=== PATIENT | female | born 1935 | race Caucasian/White ===

== ENCOUNTER → 2018-07-26 | Outpatient (CLI) | payer OTHER ==
[~2018-07-26] MED LIST: ARICEPT 5 MG TAB5 MG PO; CALCIUM 500 +1 EAC6 PO; CELEBREX 200 M200 MG PO; CITRUCEL500 MG PO; CO Q-10100 MG PO; CRESTOR40 MG PO; CYMBALTA30 MG PO; KLOR-CON 1010 MEQ PO; LISINOPRIL10 MG PO; LYRICA 50 MG50 MG PO; MAGOX 400400 MG PO; MEDROLDOSEPACK PO; MYRBETRIQ50 MG PO; NAMENDA 10 MG T10 MG PO; NIACIN 500 MG500 M1 PO; NORCO 5-325 TA1 EACH PO; PEPCID20 MG PO; REQUIP 0.25 M0.25 MG PO; TRAMADOL 50 MG50 MG PO; VOLTAREN GEL 1100 G2 TOP; ZETIA10 MG PO
== END ==
LOC: SEN 14:07 → RAD 14:07
DX: Z09 Encounter for follow-up examination after completed treatment for conditions other than malignant neoplasm (principal); M54.5 Low back pain; G89.29 Other chronic pain; R00.2 Palpitations; M54.6 Pain in thoracic spine; R07.9 Chest pain, unspecified; G31.84 Mild cognitive impairment of uncertain or unknown etiology; I10 Essential (primary) hypertension; E78.5 Hyperlipidemia, unspecified; K21.9 Gastro-esophageal reflux disease without esophagitis; Z76.89 Persons encountering health services in other specified circumstances

== ENCOUNTER → 2018-07-29 | Outpatient (CLI) | payer OTHER | LOC: RAD 13:56 | DX: M47.814 Spondylosis without myelopathy or radiculopathy, thoracic region (principal); M41.85 Other forms of scoliosis, thoracolumbar region; M25.78 Osteophyte, vertebrae; I70.0 Atherosclerosis of aorta; R07.89 Other chest pain; R00.2 Palpitations ==

== ENCOUNTER → 2018-08-16 | Outpatient (CLI) | payer OTHER | LOC: SEN 08:49 | DX: G47.33 Obstructive sleep apnea (adult) (pediatric) (principal); R40.0 Somnolence; E78.5 Hyperlipidemia, unspecified; I10 Essential (primary) hypertension; K21.9 Gastro-esophageal reflux disease without esophagitis; G25.81 Restless legs syndrome; Z99.89 Dependence on other enabling machines and devices; Z79.899 Other long term (current) drug therapy; Z82.49 Family history of ischemic heart disease and other diseases of the circulatory system; Z81.8 Family history of other mental and behavioral disorders ==

== ENCOUNTER → 2018-08-24 | Outpatient (CLI) | payer OTHER ==
[~2018-08-24] VITALS: Ht 152.4 cm; Wt 54.2 kg
[~2018-08-24] MED LIST changes: -CELEBREX 200 M200 MG PO
[2018-08-24 13:19] VITALS: BP 160/66
--- NOTE | 2018-08-24 13:38 | NUR ---
Pain Clinic Assessment: 1. History of Osteoarthritis: History of Rheumatoid Arthritis: 2. Height: 4 ft. 12 in. 152.4 cm. Weight: 119.6 lb. oz. 54.250 kg. Patient's BMI: 23.4 3. Vital Signs: BP: 160/66 Pulse: 50 Resp: 20 Temp: 02 Sat: 97 ECG Mon: 4. Pain Intensity: 8 5. Fall Risk: Dizziness: N Needs help standing or walking: Y Fallen in the last 3 months: N Fall risk comments: 6. Patient on Blood Thinner: None 7. History of Hypertension: Y 8. Opioid Therapy greater than 6 weeks: Y Opiate Contract Signed: 9. Risk Assessment Tool Provided: 10. Functional Assessment Tool: 11. Recreational Drug Use: Never Drug Type: Tobacco Use: Never Smoker Tobacco Type: Amount or Packs/day: How Many Years: Alcohol Use: No Frequency: Quant:
== END ==
LOC: RAD 07:14 → PAIN 07:14
DX: M25.561 Pain in right knee (principal); I10 Essential (primary) hypertension; Z96.651 Presence of right artificial knee joint; Z79.891 Long term (current) use of opiate analgesic

== ENCOUNTER → 2018-09-07 | Outpatient (CLI) | payer OTHER ==
[~2018-09-07] VITALS: Ht 152.4 cm; Wt 52.8 kg
[~2018-09-07] MED LIST changes: +CELEBREX 200 M200 MG PO
[2018-09-07 15:05] VITALS: BP 167/71
--- NOTE | 2018-09-07 15:09 | NUR ---
Pain Clinic Assessment: 1. History of Osteoarthritis: History of Rheumatoid Arthritis: 2. Height: 4 ft. 12 in. 152.4 cm. Weight: 116.4 lb. oz. 52.799 kg. Patient's BMI: 22.7 3. Vital Signs: BP: 167/71 Pulse: 86 Resp: 16 Temp: 02 Sat: 99 ECG Mon: 4. Pain Intensity: 10 5. Fall Risk: Dizziness: N Needs help standing or walking: N Fallen in the last 3 months: N Fall risk comments: 6. Patient on Blood Thinner: None 7. History of Hypertension: Y 8. Opioid Therapy greater than 6 weeks: Y Opiate Contract Signed: 9. Risk Assessment Tool Provided: LOW 10. Functional Assessment Tool: 11. Recreational Drug Use: Never Drug Type: Tobacco Use: Never Smoker Tobacco Type: Amount or Packs/day: How Many Years: Alcohol Use: No Frequency: Quant:
== END ==
LOC: PAIN 09-02 06:55
DX: M25.561 Pain in right knee (principal); I10 Essential (primary) hypertension; F32.9 Major depressive disorder, single episode, unspecified; Z79.891 Long term (current) use of opiate analgesic

== ENCOUNTER → 2018-09-09 | Outpatient (CLI) | payer OTHER | LOC: SEN 09:24 | DX: Z76.0 Encounter for issue of repeat prescription (principal); R15.9 Full incontinence of feces; I10 Essential (primary) hypertension; E78.5 Hyperlipidemia, unspecified; K21.9 Gastro-esophageal reflux disease without esophagitis ==

== ENCOUNTER → 2018-10-25 | Outpatient (CLI) | payer OTHER | LOC: ULTRA 09:54 | DX: N85.8 Other specified noninflammatory disorders of uterus (principal); N93.8 Other specified abnormal uterine and vaginal bleeding ==

== ENCOUNTER → 2018-10-26 | Outpatient (CLI) | payer OTHER | LOC: RAD 11:18 | DX: R10.84 Generalized abdominal pain (principal); K59.00 Constipation, unspecified; Z90.49 Acquired absence of other specified parts of digestive tract ==

== ENCOUNTER → 2018-12-21 | Outpatient (CLI) | payer OTHER ==
[~2018-12-21] VITALS: Ht 152.4 cm; Wt 52.3 kg
[~2018-12-21] MED LIST changes: +HYDROCODON-ACE1 EAC5 PO
--- NOTE | ~2018-12-21 | HPC ---
[facility] [address] [place] [address] PAIN MANAGEMENT CONSULTATION Name: TONY ABREU Room #: REG [facility] Ian#: [id number] Admission: 12/21/18 Attend Phys: Fran Mcintyre MD Discharge: Date of : 37 Report #: [id number] THIS REPORT FOR: //name// CC: Vee Wyatt DATE OF SERVICE: 12/21/2018 PRIMARY CARE PHYSICIAN: Vee Perez NP CHIEF COMPLAINT: "The back brace is helping." HISTORY: The patient is an 83-year-old female who has been followed in the pain clinic. As you recall, she has a history of chronic knee pain. She feels that the use of diclofenac on the knee area has been beneficial. She also has received the back brace. She feels that it is beneficial. She is making some adjustments to wearing it. Overall, things are going reasonably well. She finds that her medications continue to be helpful. She has returned today for renewal of her medications. She feels that the tramadol, [place], Celebrex and diclofenac are beneficial and would like to have them renewed at this point. She has not fallen since we saw her last. ALLERGIES: No known drug allergies. CURRENT MEDICATIONS: Myrbetriq 50 mg, Namenda 10 mg, niacin 500 mg, CoQ10 100 mg, potassium 10 mEq, magnesium 100 mg, Citrucel 500 mg b.i.d., calcium 500 mg, vitamin D 200 mg, Requip 0.25 mg t.i.d., Lyrica 100 mg t.i.d., famotidine 20 mg b.i.d., Ultram 5 mg b.i.d. to t.i.d., hydrocodone 5/325 one p.o. b.i.d. to t.i.d., Voltaren gel topical 4 times daily to the left knee area, Aricept 5 mg, lisinopril 10 mg, Zetia 10 mg, Crestor 40 mg, Cymbalta 30 mg. PAIN CLINIC ASSESSMENT/PQRS: 1. The patient has a history of osteoarthritis. She has had bilateral artificial knees. She has osteoarthritic changes in the low back area. She is not being treated for rheumatoid arthritis. 2. Height 5 feet 0 inches, weight 115 pounds, BMI is 22.5. 3. VITAL SIGNS: Blood pressure 163/70, pulse 69, respiratory rate 18, room air saturation 99%. 4. Pain intensity 07/24. 5. Fall history: The patient has not fallen in the last 3 months. 6. Blood thinner. The patient is not on a blood thinning medication. 7. Hypertension. The patient is being treated for hypertension. 8. Opioids greater than 6 weeks. The [facility]. 9. Risk assessment tool, low for opioid use. [address] [address] PAIN MANAGEMENT CONSULTATION Name: TONY ABREU Sherly Room #: REG OSM[facility] Sosa#: [id number] Admission: 12/21/18 Attend Phys: Frna Mcintyre MD Discharge: Date of : 37 Report #: [id number] 10. Functional assessment tool . 11. Recreational drug use. The patient denies. 12. Tobacco: The patient has never smoked. 13. Alcohol: The patient denies use of alcoholic beverages. PHYSICAL EXAMINATION: GENERAL: The patient is a well-developed white female, appears her stated age. Her affect is appropriate. The patient is alert and oriented x 3. HEENT: Normocephalic, atraumatic. Extraocular eye muscles intact. The patient is wearing glasses. NECK: Without adenopathy or JVD. HEART: Regular rate. ABDOMEN: Nontender. Bowel sounds difficult to appreciate. The patient has a brace in place. The patient has severe kyphosis and scoliosis in the upper back, has a forward leaning posture. Walks with a rolling walker. Notes discomfort in her right knee. IMPRESSION: 1. Chronic left knee pain and right knee pain. 2. Hypertension. 3. Heart disease. 4. Back surgery with spacers in the vertebral area. 5. Allergic rhinitis. 6. Chronic back pain. 7. Gastroesophageal reflux disease. 8. Hyperlipidemia. 9. Hypertension. 10. Minimal cognitive impairment. 11. Neuropathy and restless leg syndrome. RECOMMENDATIONS: We discussed treatment options with the patient. At this juncture, she feels that the brace that she has on is helpful. It helps her to sit in a bit more ergonomic way. She feels that it is helpful, but is getting used to it. She feels that the hydrocodone medication is helpful, 5 mg 1 p.o. t.i.d., is not as helpful as she would like. She has had higher dosages of this medication. She would like to try 10 mg tablets. We will have the patient try 10 mg hydrocodone 1 p.o. t.i.d. as needed. She will also continue with tramadol as needed 1 p.o. t.i.d. A script for Celebrex has been rewritten. She will monitor her GI tract. Should she note some GI upset stop taking this medication. She will continue with the Voltaren gel to the affected knee. [facility] [address] [facility] [place] [address] PAIN MANAGEMENT CONSULTATION Name: TONY ABREU Room #: REG OSMAN [place].#: [id number] Admission: 12/21/18 Attend Phys: Fran Mcintyre MD Discharge: Date of : 37 Report #: [id number] We would like to thank you for letting us participate in her care. We hope she continues to improve. By: [id number] Fran Mcintyre MD /PMT
[2018-12-21 11:22] VITALS: BP 163/70
--- NOTE | 2018-12-21 11:27 | NUR ---
Pain Clinic Assessment: 1. History of Osteoarthritis: History of Rheumatoid Arthritis: 2. Height: 4 ft. 12 in. 152.4 cm. Weight: 115.4 lb. oz. 52.345 kg. Patient's BMI: 22.5 3. Vital Signs: BP: 163/70 Pulse: 69 Resp: 18 Temp: 02 Sat: 99 ECG Mon: 4. Pain Intensity: 3 5. Fall Risk: Dizziness: N Needs help standing or walking: Y Fallen in the last 3 months: N Fall risk comments: 6. Patient on Blood Thinner: None 7. History of Hypertension: Y 8. Opioid Therapy greater than 6 weeks: Y Opiate Contract Signed: 9. Risk Assessment Tool Provided: LOW 10. Functional Assessment Tool: 11. Recreational Drug Use: Never Drug Type: Tobacco Use: Never Smoker Tobacco Type: Amount or Packs/day: How Many Years: Alcohol Use: No Frequency: Quant:
== END ==
LOC: PAIN 07:00
DX: M25.562 Pain in left knee (principal); M25.561 Pain in right knee; I10 Essential (primary) hypertension; M54.9 Dorsalgia, unspecified; K21.9 Gastro-esophageal reflux disease without esophagitis; E78.5 Hyperlipidemia, unspecified; I51.9 Heart disease, unspecified; J30.9 Allergic rhinitis, unspecified; G31.84 Mild cognitive impairment of uncertain or unknown etiology; G62.9 Polyneuropathy, unspecified; Z79.899 Other long term (current) drug therapy

== ENCOUNTER → 2018-12-27 | Outpatient (CLI) | payer OTHER | LOC: NUC 09:44 | DX: M19.012 Primary osteoarthritis, left shoulder (principal); M19.011 Primary osteoarthritis, right shoulder; M19.032 Primary osteoarthritis, left wrist; M19.031 Primary osteoarthritis, right wrist; M41.85 Other forms of scoliosis, thoracolumbar region; M19.072 Primary osteoarthritis, left ankle and foot; M19.071 Primary osteoarthritis, right ankle and foot ==

== ENCOUNTER → 2019-01-25 | Outpatient (CLI) | payer OTHER ==
[~2019-01-25] VITALS: Ht 152.4 cm; Wt 52.2 kg
[~2019-01-25] MED LIST changes: +PRESERVISION A1 EAC2 PO
--- NOTE | ~2019-01-25 | HPC ---
[facility] [place] [place] [address] PAIN MANAGEMENT CONSULTATION Name: TNOY ABREU Room #: REG [facility].#: [id number] Admission: 01/25/19 ������������������ Attend Phys: Fran Mcintyre MD Discharge: ������������������ Date of : 37 Report #: [id number] THIS REPORT FOR: //name// CC: Fran Wyatt DATE OF SERVICE: 01/25/2019 CHIEF COMPLAINT: "Right knee pain. The back brace helps me sit up more straight." HISTORY: The patient is an 83-year-old female who has been seen in the pain clinic because of chronic pain involving her back. As you may recall, she has scoliosis. She was fitted for a new back brace. She feels that this is helpful. She is constantly moving because the brace encouraging her to sit in a more upright position. She has had no complication from the procedure. She has returned today for renewal of her medications. She feels the hydrocodone medication is helpful. She is taking Celebrex and is having no GI complaints. Finds that the Voltaren gel applied to her affected area is beneficial. She feels that tramadol can be helpful as well. She is able to think clearly. The medications are not clouding her sensorium. She would like to have a renewal of these medications. ALLERGIES: No known drug allergies. CURRENT MEDICATIONS: Myrbetriq 50 mg, Namenda 10 mg, niacin 500 mg, CoQ10 100 mg, potassium 10 mEq, magnesium 100 mg, Citrucel 500 mg b.i.d., calcium 500 mg, vitamin D 200 mg, Requip 0.25 mg t.i.d., Lyrica 100 mg t.i.d., famotidine 20 mg b.i.d., Ultram 5 mg b.i.d. to t.i.d., hydrocodone 5/325 one p.o. b.i.d. to t.i.d., Voltaren gel topical 4 times to the left knee area, Aricept 5 mg, lisinopril 10 mg, Zetia 10 mg, Crestor 40 mg and Cymbalta 30 mg. PAIN CLINIC ASSESSMENT AND PQRS: 1. The patient has history of osteoarthritis. She has some problems with her knees and had bilateral knee replacements. She suffers from osteoarthritic changes in her back as well. Has significant amounts of scoliosis. She is not being treated for rheumatoid arthritis. 2. Height 4 feet 11 inches, weight 115 pounds, BMI is 22.5. 3. Vital Signs: Blood pressure 171/76, pulse 75, respiratory rate 16, room air saturation 97%. 4. Pain intensity 4/10 in the knee and 5-6/10 for the back. 5. Fall risk. The patient has not fallen in the last 3 months. 6. Blood thinner. The patient is not on a blood thinning medication. 7. Hypertension. The patient is being treated for hypertension. 8. Opioids greater than 6 weeks. The [facility] [address] PAIN MANAGEMENT CONSULTATION Name: ALBANIA ABREUFIORELLA Dubois Room #: REG CLI EricEric#: [id number] Admission: 01/25/19 ������������������ Attend Phys: Fran Mcintyre MD Discharge: ������������������ Date of : 37 Report #: [id number] 9. Risk assessment tool, low for opioid use. 10. Functional assessment tool . 11. Recreational drugs. The patient denies use of recreational drugs. 12. Tobacco: The patient has never smoked. 13. Alcohol. The patient denies frequent use of alcoholic beverages. PHYSICAL EXAMINATION: GENERAL: The patient is a well-developed, well-nourished white female. Appears her stated age. She is accompanied by her . Her affect is appropriate. Speech is fluent. HEENT: Normocephalic, atraumatic. Extraocular eye muscles intact. The patient is wearing glasses. NECK: Without adenopathy or JVD. HEART: Regular rate. ABDOMEN: Nontender. MUSCULOSKELETAL: The patient's back has significant changes associated with scoliosis. Some kyphosis is noted. The patient walks with a rolling walker. She has a forward leaning posture. She notes discomfort in her left as well as her right knee. IMPRESSION: 1. Chronic left knee pain and right knee pain. 2. Hypertension. 3. Heart disease. 4. Back surgery with spacers in the vertebral space. 5. Allergic rhinitis. 6. Chronic back pain. 7. Gastroesophageal reflux disease. 8. Hyperlipidemia. 9. Hypertension. 10. Minimally cognitive impaired. 11. Neuropathy and restless leg syndrome. RECOMMENDATIONS: We discussed treatment options with the patient. At this juncture, we will continue with her use of medications to help curtail her pain and discomfort. She is aware that opioid medications can be problematic. The patient states that these are not having any problems with diminution of her cognitive ability. She is alert and able to function well. She feels that the medications are helpful. She finds that the brace is helpful and it continues to remind her to sit in a more upright position. She is having no significant problems with the brace. It is a little bit difficult because of constantly needing to readjust sit up straight. She will continue with her medications. She takes the Celebrex on occasion. She continues to monitor her GI tract. She will stop taking this medication should she develop any concerns regarding her GI function. The patient will continue to apply the Voltaren gel to her affected right knee. Hopefully, she will continue to find that these items are [facility] [address] [place] [address] PAIN MANAGEMENT CONSULTATION Name: TONY ABREU Sherly Room #: REG [facility]#: [id number] Admission: 01/25/19 ������������������ Attend Phys: Fran Mcintyre MD Discharge: ������������������ Date of : 37 Report #: [id number] helpful and continue to improve her daily living. We would like to thank you for letting us participate in her care. We hope she continues to improve. ��������������������������������������������� ���������������������������������������� By: ��������������������������������������������� [id number] Fran Mcintyre MD /nt
[2019-01-25 12:59] VITALS: BP 171/76
--- NOTE | 2019-01-25 13:23 | NUR ---
Pain Clinic Assessment: 1. History of Osteoarthritis: FINGERS RIGHT ANKLE RIGHT KNEE History of Rheumatoid Arthritis: NONE 2. Height: 4 ft. 12 in. 152.4 cm. Weight: 115.0 lb. oz. 52.164 kg. Patient's BMI: 22.5 3. Vital Signs: BP: 171/76 Pulse: 75 Resp: 16 Temp: 02 Sat: 97 ECG Mon: 4. Pain Intensity: KNEE-4 TODAY, BACK-5-6 5. Fall Risk: Dizziness: N Needs help standing or walking: Y Fallen in the last 3 months: N Fall risk comments: 6. Patient on Blood Thinner: None 7. History of Hypertension: Y 8. Opioid Therapy greater than 6 weeks: Y Opiate Contract Signed: 9. Risk Assessment Tool Provided: JULI 10. Functional Assessment Tool: 11. Recreational Drug Use: Never Drug Type: Tobacco Use: Never Smoker Tobacco Type: Amount or Packs/day: How Many Years: Alcohol Use: No Frequency: Quant:
== END ==
LOC: PAIN 12:27
DX: M25.561 Pain in right knee (principal); M25.562 Pain in left knee; M54.5 Low back pain; I11.9 Hypertensive heart disease without heart failure; K21.9 Gastro-esophageal reflux disease without esophagitis; E78.5 Hyperlipidemia, unspecified; G62.9 Polyneuropathy, unspecified; J30.9 Allergic rhinitis, unspecified; Z79.899 Other long term (current) drug therapy

== ENCOUNTER → 2019-03-03 | Outpatient (CLI) | payer OTHER ==
[~2019-03-03] VITALS: Ht 152.4 cm; Wt 53.6 kg
[2019-03-03 12:43] VITALS: BP 140/62
--- NOTE | 2019-03-03 12:51 | NUR ---
Pain Clinic Assessment: 1. History of Osteoarthritis: FINGERS RIGHT ANKLE RIGHT KNEE History of Rheumatoid Arthritis: NONE 2. Height: 5 ft. 0 in. 152.4 cm. Weight: 118.2 lb. oz. 53.615 kg. Patient's BMI: 23.1 3. Vital Signs: BP: 140/62 Pulse: 61 Resp: 16 Temp: 02 Sat: 96 ECG Mon: 4. Pain Intensity: 6 5. Fall Risk: Dizziness: N Needs help standing or walking: N Fallen in the last 3 months: N Fall risk comments: 6. Patient on Blood Thinner: None 7. History of Hypertension: Y 8. Opioid Therapy greater than 6 weeks: Y Opiate Contract Signed: 9. Risk Assessment Tool Provided: LOW 10. Functional Assessment Tool: 11. Recreational Drug Use: Never Drug Type: Tobacco Use: Never Smoker Tobacco Type: Amount or Packs/day: How Many Years: Alcohol Use: No Frequency: Quant:
--- NOTE | 2019-03-24 08:25 | HPC ---
[facility] [address] [address] PAIN MANAGEMENT CONSULTATION Name: TONY ABREU [id number] Admission: 03/03/19 Attend Phys: Fran Mcintyre MD Discharge: Date of : 37 Report #: [id number] THIS REPORT FOR: //name// CC: Fran Wyatt DATE OF SERVICE: 03/03/2019 CHIEF COMPLAINT: Continued right knee pain. HISTORY: The patient is an 84-year-old female who has been followed in the pain clinic because of chronic pain. She has had a right knee replacement. Continues to have pain and discomfort in the knee. She has some scoliosis. We have discussed the possibility of a brace for the upper thoracic area. She feels that her medications are helpful. She is not having any problems with mentation. She has not fallen since we saw her last. She is able to engage in activities of daily living without problems. She has returned today with the hopes of having the hydrocodone medication continued. ALLERGIES: No known drug allergies. CURRENT MEDICATIONS: Myrbetriq 50 mg, Namenda 10 mg, niacin 500 mg, CoQ10 100 mg, potassium 10 mEq, magnesium 100 mg, Citrucel 500 mg b.i.d., calcium 500 mg, vitamin D 200 mg, Requip 0.25 mg t.i.d., Lyrica 100 mg t.i.d., famotidine 20 mg t.i.d. to b.i.d., Ultram 5 mg b.i.d. to t.i.d., hydrocodone 5/325 one p.o. b.i.d. to t.i.d., Voltaren gel topical 4 times daily to the left knee, the patient finds that this is helpful. Aricept 5 mg, lisinopril 10 mg, Zetia 10 mg, Crestor 40 mg, Cymbalta 30 mg. PAIN CLINIC ASSESSMENT AND PQRS: 1. The patient has some osteoarthritic changes. She has had a right knee replacement. She has had bilateral knee replacements and right knee continues to be quite problematic. She is not being treated for rheumatoid arthritis. She suffers from osteoarthritis and scoliosis. 2. Height 5 feet 0 inches, weight 118 pounds, BMI is 23.1. 3. Vital signs: Blood pressure 140/62, pulse 61, respiratory rate 16, room air saturation 96%. 4. Pain intensity /10. 5. Fall risk. The patient has not fallen in the last 3 months. 6. Blood thinner. The patient is not on a blood thinning medication. 7. Hypertension. The patient is being treated for hypertension. 8. Opioids greater than 6 weeks. The patient [facility]. 9. Risk assessment tool, low for opioid use. 10. Functional assessment tool . 11. Recreational drugs: The patient denies. [address] [address] PAIN MANAGEMENT CONSULTATION Name: TONY ABREU Sherly Room #: [facility] [id number] Admission: 03/03/19 Attend Phys: Fran Mcintyre MD Discharge: Date of : 37 Report #: [id number] 12. Tobacco: The patient has never smoked. 13. Alcohol. The patient denies use of alcoholic beverages. PHYSICAL EXAMINATION: GENERAL: The patient is a well-developed, well-nourished white female. Appears her stated age. She is alert and oriented x 3. She is accompanied by her . Affect is appropriate. Speech is fluent. HEENT: Normocephalic, atraumatic. Extraocular eye muscles intact. Sclerae nonicteric. The patient is wearing glasses. NECK: Without adenopathy. HEART: Regular rate. ABDOMEN: Nontender. EXTREMITIES: The patient has scoliosis in the upper extremity. Upper extremity muscle strength judged to be 4+/5. The patient has a significant amount of kyphosis. She has a forward leaning posture. Walks with a walker with wheels. Complains of pain and discomfort in the left as well as right knees, right more problematic. IMPRESSION: 1. Chronic left knee pain and right knee pain. 2. Hypertension. 3. Heart disease. 4. Back surgery with spacers in the vertebral spaces. 5. Allergic rhinitis. 6. Chronic back pain. 7. Gastroesophageal reflux disease. 8. Hyperlipidemia. 9. Hypertension. 10. Minimally cognitive impaired. 11. Neuropathy and restless leg syndrome. RECOMMENDATIONS: We discussed treatment options with the patient. She feels that her medications are helpful. She does not have any problems. They are not causing any concerns. She has not fallen at home. Overall, she feels that the medications are helpful. Continues to have pain, which is still quite problematic with her left as well as the right knee. Feels that the opioid medication is helpful for that. Feels that the Voltaren gel is helpful for that. She does not have any complaints of GI problems. The patient will continue with her current medication regimen. The patient takes Celebrex on occasion. She will continue to monitor her GI tract. Should she find any problems with her GI tract, she will stop taking the Celebrex medication. A script for her medications of hydrocodone 10/325 one p.o. t.i.d. has been written. The patient will monitor these medications. Her has some mental decline as well. She is aware that these medications can be problematic [facility] [address] [place] [address] PAIN MANAGEMENT CONSULTATION Name: TONY ABREU Room #: REG [facility] Ian#: [id number] Admission: 03/03/19 Attend Phys: Fran Mcintyre MD Discharge: Date of : 37 Report #: [id number] should her overt take these medications and cause problems with overdosing. <ELECTRONICALLY SIGNED> By: Fran Mcintyre MD 03/24/19 0825 [id number] [id number] Fran Mcintyre MD /nt
== END ==
LOC: PAIN 06:59
DX: M25.561 Pain in right knee (principal); M25.562 Pain in left knee; I10 Essential (primary) hypertension; M54.5 Low back pain; K21.9 Gastro-esophageal reflux disease without esophagitis; E78.5 Hyperlipidemia, unspecified; G62.9 Polyneuropathy, unspecified; J30.9 Allergic rhinitis, unspecified

== ENCOUNTER → 2019-03-10 | Outpatient (CLI) | payer OTHER ==
--- NOTE | 2019-03-10 10:35 | 2DMMODE ---
[facility] [place] [address] [place] [address] 2 D/M-MODE ECHOCARDIOGRAM Name: BRADYTONY L Room #: REG [facility]#: [id number] Admission: 03/10/19 Attend Phys: Mauro Villanueva MD Discharge: Date of : 37 Report #: [id number] THIS REPORT FOR: //name// APPROVED REPORT Study performed: 03/10/2019 09:19:02 EXAM: Comprehensive 2D, Doppler, and color-flow Echocardiogram Patient Location: Out-Patient Status: routine BSA: 1.46 HR: 57 bpm BP: 154/74 mmHg Rhythm: LBBB Other Information Study Quality: Good Indications CAD Hx: Balloon plasty, LBBB, HTN, HLP. 2D Dimensions RVDd: 39.76 mm IVSd: 10.00 (7-11mm) LVOT Diam: 19.26 (18-24mm) LVDd: 38.00 mm PWd: 10.00 (7-11mm) Ascending Ao: 29.98 (22-36mm) LVDs: 26.25 (25-40mm) Aortic Root: 32.36 mm Volumes Left Atrial Volume (Systole) Single Plane 4CH: 54.61 mL Single Plane 2CH: 82.01 mL LA ESV Index: 48.00 mL/m2 Aortic Valve AoV Peak Gregroio.: 1.52 m/s AO Peak Gr.: 9.19 mmHg LVOT Max P.72 mmHg LVOT Max V: 1.20 m/s LELAND Vmax: 2.30 cm2 Mitral Valve E/A Ratio: 0.8 MV Decel. Time: 244.52 ms [facility] [address] [place] [address] 2 D/M-MODE ECHOCARDIOGRAM Name: TONY ABREU Room #: REG [facility]#: [id number] Admission: 03/10/19 Attend Phys: Mauro Villanueva MD Discharge: Date of : 37 Report #: [id number] E Max Gregorio.: 0.85 m/s MV A Gregorio.: 1.05 m/s MV PHT: 70.91 ms IVRT: 76.12 ms Pulmonary Valve PV Peak Gregorio.: 1.13 m/s PV Peak Gr.: 5.09 mmHg Pulmonary Vein P Vein S: 0.71 m/s P Vein A: 0.30 m/s P Vein D: 0.57 m/s P Vein A Dur.: 129.2 msec P Vein S/D Ratio: 1.25 Tricuspid Valve TR Peak Gregorio.: 3.02 m/s RAP Estimate: 5.00 mmHg TR Peak Gr.: 37.00 mmHg PA Pressure: 42.00 mmHg Left Ventricle The left ventricle is normal size. There is normal LV segmental wall motion. Paradoxical septal motion consistent with conduction abnormality. Mild basal septal hypertrophy is present. Left ventricular systolic function is normal. LVEF is 60-65%. Mild diastolic dysfunction is present (impaired relaxation pattern). Right Ventricle The right ventricle is normal size. The right ventricular systolic function is normal. Atria Left atrium is moderately dilated. Right atrium is mildly dilated. Aortic Valve The aortic valve is normal in structure; mildly calcified. Trace aortic regurgitation. There is no aortic valvular stenosis. Mitral Valve Mitral valve leaflets are mildly thickened and calcified. Mild to moderate mitral regurgitation. No evidence of mitral valve stenosis. Tricuspid Valve The tricuspid valve is normal in structure. Moderate tricuspid regurgitation. Estimated PAP is 40-45mmHg. [facility] [address] [place] [address] 2 D/M-MODE ECHOCARDIOGRAM Name: TONY ABREU Room #: REG [facility]#: [id number] Admission: 03/10/19 Attend Phys: Mauro Villanueva MD Discharge: Date of : 37 Report #: [id number] Pulmonic Valve The pulmonary valve is normal in structure. Mild pulmonic regurgitation. Great Vessels The aortic root is normal in size. The ascending aorta is normal in size. IVC is normal in size and collapses >50% with inspiration. Pericardium There is no pericardial effusion. <Conclusion> The left ventricle is normal size. Left ventricular systolic function is normal. Mild diastolic dysfunction is present (impaired relaxation pattern). The right ventricle is normal size. Left atrium is moderately dilated. Right atrium is mildly dilated. The aortic valve is normal in structure; mildly calcified. Mitral valve leaflets are mildly thickened and calcified. Mild to moderate mitral regurgitation. Moderate tricuspid regurgitation. Estimated PAP is 40-45mmHg. <ELECTRONICALLY SIGNED> By: Mauro Villanueva MD 03/10/195 34 34 Mauro Villanueva MD /INF
== END ==
LOC: NUC 08:25
DX: I08.8 Other rheumatic multiple valve diseases (principal); I25.10 Atherosclerotic heart disease of native coronary artery without angina pectoris; E78.5 Hyperlipidemia, unspecified; I10 Essential (primary) hypertension; I48.91 Unspecified atrial fibrillation; Z79.899 Other long term (current) drug therapy

== ENCOUNTER → 2019-06-16 | Outpatient (CLI) | payer OTHER ==
[~2019-06-16] VITALS: Ht 152.4 cm; Wt 52.2 kg
[~2019-06-16] MED LIST changes: +AMBIEN 10 MG TA10 MG PO; +ASPIR 8181 MG PO; +CELEBREX 200 M200 M1 PO; +IPRATROPIUM BRO15 ML NASAL; +NAMENDA XR28 MG PO; +NORCO 10-325 T1 EACH PO; +VOLTAREN GEL 1100 G1 TOP
[2019-06-16 13:44] VITALS: BP 150/77
--- NOTE | 2019-06-16 13:52 | NUR ---
Pain Clinic Assessment: 1. History of Osteoarthritis: FINGERS RIGHT ANKLE RIGHT KNEE History of Rheumatoid Arthritis: NONE 2. Height: 5 ft. 0 in. 152.4 cm. Weight: 115.0 lb. oz. 52.164 kg. Patient's BMI: 22.5 3. Vital Signs: BP: 150/77 Pulse: 77 Resp: 16 Temp: 02 Sat: 100 ECG Mon: 4. Pain Intensity: 8 5. Fall Risk: Dizziness: N Needs help standing or walking: Y Fallen in the last 3 months: N Fall risk comments: 6. Patient on Blood Thinner: None 7. History of Hypertension: Y 8. Opioid Therapy greater than 6 weeks: Y Opiate Contract Signed: 9. Risk Assessment Tool Provided: LOW 10. Functional Assessment Tool: 11. Recreational Drug Use: Never Drug Type: Tobacco Use: Never Smoker Tobacco Type: Amount or Packs/day: How Many Years: Alcohol Use: No Frequency: Quant:
--- NOTE | 2019-06-23 08:39 | HPC ---
[facility] [address] [address] PAIN MANAGEMENT CONSULTATION Name: TONY ABREU Room #: REG [facility]#: [id number] Admission: 06/16/19 Attend Phys: Fran Mcintyre MD Discharge: Date of : 37 Report #: [id number] THIS REPORT FOR: cc: Esme Wyatt MD, Nora P. MD Brown, N. Wayne MD ~ THIS REPORT FOR: //name// CC: Fran Wyatt DATE OF SERVICE: 06/16/2019 CHIEF COMPLAINT: Right and left knee pain. HISTORY: The patient is an 84-year-old female who has been followed in the Pain Clinic because of chronic pain. She has had knee replacements. She is having pain involving the right side. Both knees are uncomfortable. She rates her pain overall as an 8/10. She feels that her medications of Celebrex and tramadol are helpful. She finds that hydrocodone is beneficial as well. She would like to continue with these medications. She is not having any problems with her sensorium. They enable her to engage in activities of daily living with less pain and discomfort. She notes that the pain is worse when she is walking, standing and can be problematic after prolonged sitting. Changing from a sitting to a standing position is problematic. She does walk with the use of a walker. She is contemplating surgery on her knee on 06/20/2019. ALLERGIES: No known drug allergies. CURRENT MEDICATIONS: Myrbetriq 50 mg, Namenda 10 mg, niacin 500 mg, CoQ10 100 mg, potassium 10 mEq, magnesium 100 mg, Citrucel 500 mg b.i.d., calcium 500 mg, vitamin D 200 mg, Requip 0.25 mg t.i.d., Lyrica 100 mg t.i.d., famotidine 20 mg t.i.d. to b.i.d., Ultram 5 mg b.i.d. to t.i.d., hydrocodone 5/325 one p.o., Voltaren gel 4% topical to the left knee. The patient will continue with Aricept 5 mg, lisinopril 10 mg, Zetia 10 mg, Crestor 40 mg, and Cymbalta 30 mg. PAIN CLINIC ASSESSMENT/PQRS: 1. The patient has some osteoarthritic changes involving her right knee. She has had a right knee replacement. The patient has had bilateral knee replacements and is considering surgery on her knee, 06/20/2019. The patient is not being treated for rheumatoid arthritis. 2. The patient suffers from osteoarthritis and scoliosis. 3. Height 5 feet 0 inch, weight 115 pounds, BMI is 22.5. 4. Vital signs: Blood pressure 150/77, pulse 77, respiratory rate 16, room air saturation 100%. 5. Pain intensity, 8/10[place] [address] PAIN MANAGEMENT CONSULTATION Name: TONY ABREU Sherly Room #: [facility] Ian#: [id number] Admission: 06/16/19 Attend Phys: Fran Mcintyre MD Discharge: Date of : 37 Report #: [id number] 6. Fall history: The patient has not fallen in the last 3 months. 7. Blood thinner. The patient is not on a blood thinning medication. 8. Hypertension. The patient is being treated for hypertension. 9. Opioids greater than 6 weeks. The patient receives medication from one source, the Pain Clinic. 10. Risk assessment tool, low for opioid use. 11. Functional assessment tool, . 12. Recreational drug use: The patient denies. 13. Tobacco: The patient has never smoked. 14. Alcohol. The patient denies frequent use of alcoholic beverages. PHYSICAL EXAMINATION: GENERAL: The patient is a well-developed, well-nourished white female. Appears her stated age. She is alert and oriented. Her affect is appropriate. Speech is fluent. She is accompanied by her . HEENT: Normocephalic, atraumatic. Extraocular eye muscles intact. The patient is wearing glasses. NECK: Without adenopathy. HEART: Regular rate. ABDOMEN: Nontender. EXTREMITIES: Upper extremity, the patient has scoliosis in the upper extremity. There is kyphosis noted. MUSCULOSKELETAL: Upper extremity muscle strength judged to be 4/5 for the major muscle groups in the upper extremity. The patient has a forward leaning posture. She walks with her walker, which has wheels. Notes the need to use both hands to go from a sitting to a standing position. IMPRESSION: 1. Chronic left knee pain and right knee pain. 2. Hypertension. 3. Heart disease. 4. Back surgery with spacers in the vertebral spaces. 5. Allergic rhinitis. 6. Chronic back pain. 7. Gastroesophageal reflux disease. 8. Hyperlipidemia. 9. Hypertension. 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 11. Neuropathy and restless leg syndrome. RECOMMENDATIONS: We discussed treatment options with the patient. At this juncture, we will continue with her medications. She feels that the [place] medication 10 mg 1 p.o. t.i.d. is helpful. She would like to continue with that medication. She would also like to continue with tramadol 50 mg 1 p.o. t.i.d. as needed. The patient finds that Celebrex 200 mg b.i.d. is helpful and we will continue with this. She denies any GI complaints. We explained to the patient [facility] [address] [place] [address] PAIN MANAGEMENT CONSULTATION Name: TONY ABREU Room #: REG [facility].#: [id number] Admission: 06/16/19 Attend Phys: Fran Mcintyre MD Discharge: Date of : 37 Report #: [id number] that should she develop GI problems, the most likely problem is that of Celebrex and she should stop this medication. She will follow up with her surgeon. She states that she is contemplating knee surgery on 06/20/2019. A script for her medications has been provided. A script for hydrocodone 10/325 one p.o. t.i.d., tramadol 50 mg one p.o. q. 8 hours p.r.n. has been provided. The patient will also continue with Celebrex 200 mg b.i.d. The patient will take tramadol p.r.n. to help with the pain 50 mg 1 p.o. q. 8 hours p.r.n. We would like to thank you for letting us participate in her care. We hope she continues to improve. We hope she gets benefit from the knee surgery. <ELECTRONICALLY SIGNED> By: Fran Mcintyre MD 06/23/19 0839 [id number] MD mere Neely
== END ==
LOC: PAIN 06:50
DX: M25.561 Pain in right knee (principal); M25.562 Pain in left knee; G89.29 Other chronic pain; I10 Essential (primary) hypertension; E78.5 Hyperlipidemia, unspecified; K21.9 Gastro-esophageal reflux disease without esophagitis; Z79.899 Other long term (current) drug therapy; Z79.891 Long term (current) use of opiate analgesic

== ENCOUNTER 2019-06-20 05:50 | Inpatient (IN) | payer OTHER ==
[2019-06-07 09:11] LABS: HEMATOCRIT 36.2 % (37.0-47.0); HEMOGLOBIN 11.8 gm/dL (12.0-15.0); MCH 31.1 pg (26.0-34.0); MCHC 32.6 g/dL (28.0-37.0); MCV 95.4 fL (80.0-100.0); RBC 3.79 mil/uL (4.20-5.00); RDW 14.6 % (10.5-14.5); WBC 5.7 thou/uL (4.0-11.0)
[2019-06-07 09:16] LABS: ALBUMIN 3.8 g/dL (3.4-5.0); CALCIUM 9.7 mg/dL (8.5-10.1); CREATININE 1.2 mg/dL (0.6-1.0)
[2019-06-07 09:20] LABS: PROTIME 10.3 Seconds (9.3-11.4)
[2019-06-07 09:51] LABS: URINE BILIRUBIN NEGATIVE (Negative); URINE BLOOD NEGATIVE (Negative); URINE CLARITY CLEAR; URINE COLOR YELLOW; URINE GLUCOSE-RANDOM* NEGATIVE (Negative); URINE KETONES NEGATIVE (Negative); URINE NITRITE-REFLEX NEGATIVE (Negative); URINE PROTEIN (DIPSTICK) NEGATIVE (Negative); URINE SPECIFIC GRAVITY >= 1.030 (1.005-1.035); URINE UROBILINOGEN 0.2 E.U./dl (0.2-1.0)
[2019-06-07 09:57] LABS: URINE LEUKOCYTES-REFLEX 1+ (Negative)
[2019-06-07 10:30] LABS: CASTS None Seen /LPF (None Seen); CRYSTALS None Seen /LPF (None Seen); SQUAMOUS 4-10 Moderate /LPF (0-3)
[2019-06-07 10:31] LABS: URINE RBC None Seen /HPF (0-2)
[2019-06-20] VITALS (8 sets, daily range): BP systolic 115–137; BP diastolic 40–63
[~2019-06-20] VITALS: Ht 152.4 cm; Wt 52.2 kg
--- NOTE | ~2019-06-20 | O ---
[facility] [address] OPERATIVE REPORT Name: TONY ABREU Room #: 150-1 ADM IN M.R.#: [id number] Admission: 06/20/19 Attend Phys: Vamshi Hitchcock MD Discharge: Date of : 37 Report #: [id number] THIS REPORT FOR: cc: Esme Wyatt MD, Nora P. MD Abraham,Vamshi Mae MD ~ THIS REPORT FOR: //name// CC: Emse Hitchcock DATE OF SERVICE: 06/20/2019 PREOPERATIVE DIAGNOSIS: Aseptic loosening, right total knee arthroplasty. POSTOPERATIVE DIAGNOSIS: Aseptic loosening, right total knee arthroplasty. PROCEDURE: Revision of right total knee arthroplasty, all components. SURGEON: Vamshi Hitchcock MD STORAGE AND BACKUP ADMINISTRATOR: Leonor Montez PA-C. INDICATIONS FOR STORAGE AND BACKUP ADMINISTRATOR: Throughout the case, extensive retraction and manipulation of the knee was required. This was afforded to me by my assistant sales center manager. ANESTHESIA: LMA with an adductor canal block. IMPLANTS: Doss [employer] Nephew size 4 right Legion Oxinium revision femoral component with a 4 mm offset club car attendant and a 14 x 160 stem for the tibia. It was a size 2 revision tibial baseplate with a 15 mm medial hemiwedge and a 4 mm offset club car attendant with a 13 x 160 stem, size 13 constrained polyethylene and size 32 patella. TOURNIQUET TIME: 91 minutes. ESTIMATED BLOOD LOSS: 25 mL. COMPLICATIONS: None. SPECIMENS: Intraoperative frozen section was sent and found to have no acute inflammation. Intraoperative cultures were also taken and sent x 2. CONDITION UPON LEAVING THE OPERATING ROOM: Stable. 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 She had displaced about 10 years ago. She has had a workup for infection, bleeding, risk including aspiration of the knee, which was negative where inflammatory markers were negative. Bone scan was consistent with aseptic loosening. After discussion with she and her family, they elected for revision total knee arthroplasty. DESCRIPTION OF PROCEDURE: Risks, benefits, alternatives, complications were discussed in detail with the patient including but not limited to risk of anesthesia, risk of damage to nerves, arteries, blood vessels, risk for infection, bleeding, failure of operation and need for reoperation. Informed consent was obtained from the patient. Right knee was appropriately marked in the preoperative holding area. IV Ancef was given for preoperative antibiotics. Adductor canal block was placed by Anesthesia. She was brought to the operating room and placed in supine position on operating room table. LMA anesthesia was induced without complication. Tourniquet was placed on the right thigh. Right lower extremity was prepped and draped in normal sterile fashion. Timeout was performed properly identifying the patient and procedure as well as the instrumentation. All in the operating room were in agreement. Right lower extremity was exsanguinated. Tourniquet was inflated and tourniquet time was 91 minutes. Previous scar was used and incision was made through the skin with a 10 blade. Dissection was taken down sharply to the fascia and deep flaps were developed medially and laterally. Fresh 10 blade was used to make a medial parapatellar arthrotomy and the knee was inspected. There was normal-appearing synovial fluid. Cultures of this were taken. Several samples of synovium were then excised and sent for intraoperative frozen section, which showed no acute inflammation per high power field. There was a significant amount of hypertrophic synovium that was removed with Bovie cautery. There was significant osteolysis surrounding the tibia and the femur and the femoral component was easily removed with minimal dissection. The polyethylene was removed. Tibial plate was grossly loose and easily removed with no dissection. The bone was then assessed and femoral bone was actually very adequate. The tibial bone took significant bone loss and osteolysis of the medial and tibial plateau. There was a good lateral and posterior rim of bone that we felt we could ____ need a medial hemiwedge. The tibial and femoral canals were then sequentially reamed. The tibia reamed up to a size 13 and then made a cleanup cut laterally and posteriorly. We then sized the tibia and found that a size 2 fit the best and using a 4 mm offset club car attendant at the 6 o'clock position, a trial component was then placed and we did resect posterior medial tibia to accept a 15 mm medial hemiwedge. After this, attention was turned to the femur. A distal cleanout cut was made after reaming up to a size 14. This was sized and found that the size 4 had the best fit and with a 4 mm offset club car attendant at the 10 o'clock position. This anterior, posterior and chamfer cuts were made. A trial component for the femur was then built and placed and box cut was made. This was then trialed with a size 11 and then a size 13 constrained polyethylene and size 13 had excellent stability medially and good stability laterally with the [facility] [address] [place] [address] OPERATIVE REPORT Name: TONY ABREU Room #: 150-1 [facility] IN [facility]#: [id number] Admission: 06/20/19 Attend Phys: Vamshi Hitchcock MD Discharge: Date of : 37 Report #: [id number] addition of a constrained post. After this, the patella component was removed with the oscillating saw to cleanup cut on the patella was made. Peg holes for the 32 mm patella were drilled and a trial patella was placed. Knee was taken through range of motion, found to be stable, found to have good patellar tracking. After this, trial components were removed. Bony ends were thoroughly irrigated with normal saline. The tibial, femoral and patellar components were then built on the backtable and then cemented in place using standard cementation techniques. While the cement cured, a periarticular injection consisting of morphine, ropivacaine, epinephrine and Toradol was placed around the knee joint capsule. After the cement cured, the tourniquet was deflated. Hemostasis was obtained with Bovie cautery. Final size 13 constrained polyethylene was placed. A gram of vancomycin was placed deep in the joint. The fascia was closed with 0 Vicryl, skin was closed with 2-0 Vicryl, skin staple and a AUDREY dressing was applied. The patient tolerated this procedure well and went to recovery room under care of anesthesia postoperatively. By: 1030 1103 Vamshi Hitchcock MD /nt
[~2019-06-20 05:50] MED LIST changes: -ASPIR 8181 MG PO
--- NOTE | 2019-06-20 16:29 | NUR ---
PT ARRIVED ON UNIT AT 11:00 WITH AT BEDSIDE. PT W/O PAIN OR RESP DISTRESS. REGULAR DIET PUT IN COMPUTER. ADMISSION COMPLETED. V.S IN COMPUTER OXYACETYLENE TORCH OPERATOR TO PUT IN COMPUTER.
--- NOTE | 2019-06-20 20:07 | NUR ---
1900 ASSUMED CARE OF PT AFTER BEDSIDE REPORT, 1999 ASSESSMENT COMPLETED, SEE ASSESSMENT, PT WITH COMPLAINTS OF ACHEY PAIN TO RLE, PAIN MEDICATION AND REPOSITIONING, PT WITH NO S/S OF OF ANXIETY.
[2019-06-21 04:27] VITALS: BP 123/56
[2019-06-21 06:19] LABS: HEMATOCRIT 29.6 % (37.0-47.0); HEMOGLOBIN 9.6 gm/dL (12.0-15.0); MCH 31.6 pg (26.0-34.0); MCHC 32.5 g/dL (28.0-37.0); MCV 97.2 fL (80.0-100.0); RBC 3.04 mil/uL (4.20-5.00); RDW 14.1 % (10.5-14.5); WBC 13.1 thou/uL (4.0-11.0)
[2019-06-21 07:03] LABS: ALBUMIN 3.1 g/dL (3.4-5.0); CALCIUM 8.2 mg/dL (8.5-10.1); CREATININE 1.1 mg/dL (0.6-1.0); MAGNESIUM 2.5 mg/dL (1.8-2.4); POTASSIUM 4.3 mmol/L (3.5-5.1); TOTAL BILIRUBIN 0.2 mg/dL (<0.1-1.0); TOTAL PROTEIN 6.1 g/dL (6.4-8.2)
--- NOTE | 2019-06-21 07:40 | NUR ---
PT RESTING IN BED WATCHING TV. STATES NO PAIN AT PRESENT NO RESP DISTRESS. PT WANTS TO GO HOME TODAY. IV FLUIDS ORDERED, PT UP WALKING AND WALKED HALLS YESTERDAY WITH THERAPY. PT PLEASANT AND COOPERATIVE WITH CARE.
--- NOTE | 2019-06-21 11:08 | PATH ---
[facility] [employer] [address] [place] [address] PATHOLOGY RPT PROCEDURE Name: TONY ABREU Room #: 448-P ADM IN M.R.#: [id number] Admission: 06/20/19 Date of : 37 Discharge: Report #: [id number] Path Case #: [id number] [facility] Accession Number: [id number] . 01 Material submitted: . knee - RIGHT KNEE SYNOVIUM. Modifiers: right . 01 Clinical history: . Presence of right artificial knee joint. Unilateral primary OA . 02 Frozen section diagnosis: . FROZEN SECTION DIAGNOSIS: FSA1: Right knee synovium, biopsy: - Less than 1 neutrophil/hpf. . (SKM:socorro 06/20/2019) . Findings relayed to Dr. Hitchcock at the time of the procedure. . FROZEN SECTION GROSS DESCRIPTION: Received fresh, labeled "right knee synovium", consists of two pieces of pink-young soft tissue which aggregate to 4.0 x 3.0 x 1.0 cm. Cut sections of the specimen show slightly firm pink-young soft tissue. A financial foundations representative section from each of the two pieces is submitted for frozen section on FSA1. The frozen remnant is submitted in A1. . (SKM:socorro 06/20/2019) . Frozen section performed at [facility], [address] , [place] [address]. SVITLANA/GAYB . 02 Diagnosis: Synovium, right knee, biopsy: - Fibrous tissue and synovium with foreign material, foreign body giant cells, and focal dystrophic calcifications. - Less than one neutrophil present per high power field. . (SKM:mml; 06/21/2019) [facility] 06/21/2019 0937 Local . 02 Electronically signed: . Tyree Fisher MD, Pathologist NPI- [id number] . 01 Gross description: . SEE FROZEN SECTION FOR GROSS DESCRIPTION: [place] [address] PATHOLOGY RPT PROCEDURE Name: TONY ABREU Room #: 448-P [facility] IN [facility]#: [id number] Admission: 06/20/19 Date of : 37 Discharge: Report #: [id number] Path Case #: [id number] . Additional financial foundations representative sections are submitted in A2. (SDY; 06/20/2019) TONI/GABY 06/20/2019 1327 Local . 02 Pathologist provided ICD-10: M67.961 . 02 CPT . 852445, [id number] Specimen Comment: A courtesy copy of this report has been sent to [phone] Specimen Comment: Report sent to Performed at: [address], [place] [id number] MD Joe De Guzman MD Phone: [phone] Performed at: [address] [id number] MD Corina Ley MD Phone: [phone]
[2019-06-21] MEDS ORDERED: ASPIR 8181 MG PO (15:09)
[2019-06-21] MEDS ORDERED: CELEBREX 200 M200 M1 PO (15:15)
[2019-06-21 15:26] VITALS: BP 123/56
[2019-06-21 15:37] VITALS: BP 123/56
[2019-06-21 15:46] VITALS: BP 123/56
[2019-06-21 16:00] VITALS: BP 123/56
--- NOTE | 2019-06-21 17:01 | NUR ---
PT ADMITTED RELATED TO REVISION OF RT ARTIFICIAL KNEE JOINT. CM MET WITH PT AT BEDSIDE THIS DAY PT IS A&O X4. CM ROLE INTRODUCED. PT INDICATED SHE LIVES AT [facility] WITH SPOUSE. PT HAS CANE, FWW, 4WW FOR USE UPON DC. PT INDICATED SHE PLANS TO RETURN HOME AND WANTS [facility]. CARE TEAM INDICATED THAT PT IS MEDICALLY STABLE TO DC HOME WITH [facility] THIS DAY. THEY CAN ACCEPT PT. PT HAD RECOMMENDED SHORT TERM POST ACUTE STAY BUT PT IS PRIMARY CAREGIVER FOR SPOUSE AND DOESN'T WANT TO LEAVE HIM. CM SOPKE WITH SON AND CARE TEAM ABOUT DC HOME WITH HH AND ALL FEEL THAT IT IS A SAFE DC PLAN THAT PT WILL HAVE SUPPORT OF FRIEND WHOS IS IN TOWN AND INCREASED HH SERVICES. NO OTHER CM INTERVENTION INDICATED. CASE CLOSED.
== END 2019-06-21 16:13 | disposition home health service (06) | DRG 468 ==
LOC: TBA 05:50 → 4S 05:50 → TBA 08:18 → 4S 12:00 → PRE 14:13 → TBA 22:00 → ENTRNSPT 06-21 15:44 → 4S 06-21 16:13
PROVIDERS: Nurse Practitioner; ADMIT Orthopaedic Surgery
PROC: 0SRC0J9 Replacement of Right Knee Joint with Synthetic Substitute, Cemented, Open Approach (ICD-10-PCS; principal; 2019-06-20)
PROC: 0SPC0JZ Removal of Synthetic Substitute from Right Knee Joint, Open Approach (ICD-10-PCS; principal; 2019-06-20)
DX: T84.032A Mechanical loosening of internal right knee prosthetic joint, initial encounter (principal); G89.4 Chronic pain syndrome; I10 Essential (primary) hypertension; I25.10 Atherosclerotic heart disease of native coronary artery without angina pectoris; M54.9 Dorsalgia, unspecified; K21.9 Gastro-esophageal reflux disease without esophagitis; E78.00 Pure hypercholesterolemia, unspecified; E78.5 Hyperlipidemia, unspecified; G62.9 Polyneuropathy, unspecified; G25.81 Restless legs syndrome; F03.90 Unspecified dementia, unspecified severity, without behavioral disturbance, psychotic disturbance, mood disturbance, and anxiety; J30.9 Allergic rhinitis, unspecified; Y83.8 Other surgical procedures as the cause of abnormal reaction of the patient, or of later complication, without mention of misadventure at the time of the procedure; Z79.82 Long term (current) use of aspirin; Z79.899 Other long term (current) drug therapy; Z79.891 Long term (current) use of opiate analgesic; Y92.89 Other specified places as the place of occurrence of the external cause
CPT/HCPCS: 10102; 50010; 50101; 50415; 50954; 51130; 51225; 51320; 51412; 52001; 52056; 52282; 53000; 53078; 55389; 56528; 57095; 57103; 57110; 57179; 62110; 62900; 64042; 70005

== ENCOUNTER → 2019-11-01 | Outpatient (CLI) | payer OTHER ==
[~2019-11-01] MED LIST changes: +ASPIR 8181 MG PO
== END ==
LOC: RAD 11:35
PROVIDERS: ATTEND Family Medicine
DX: R05 Cough (principal)